=== PATIENT | female | born 2000 | race African-American/Black ===

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

== ENCOUNTER → 2019-07-31 | Emergency (ER) | payer MEDICAID ==
[~2019-07-31] MED LIST: predniSONE 20 MG TAB ONE
== END ==
LOC: BURERS 13:06
DX: J45.901 Unspecified asthma with (acute) exacerbation (principal); Z79.51 Long term (current) use of inhaled steroids
CPT/HCPCS: 94640; J7512; J7620

== ENCOUNTER 2019-08-16 12:34 | Emergency (ER) | payer MEDICAID | END 2019-08-16 13:06 | disposition home or self-care (01) | LOC: BURERS 12:34 | DX: R68.84 Jaw pain (principal); J45.909 Unspecified asthma, uncomplicated | CPT/HCPCS: 99282 ==

== ENCOUNTER 2019-11-19 08:10 | Emergency (ER) | payer MEDICAID ==
[2019-11-19] MEDS ORDERED: Clindamycin 150 MG CAP ONE (08:37)
[2019-11-19] MEDS ORDERED: HYDROcodone/Acetaminophen 10/325 mg Tablet ONE (08:37)
== END 2019-11-19 09:00 | disposition home or self-care (01) ==
LOC: BURERS 08:10
DX: K02.9 Dental caries, unspecified (principal); J45.909 Unspecified asthma, uncomplicated
CPT/HCPCS: 99283

== ENCOUNTER 2020-07-24 17:45 | Emergency (ER) | payer MEDICAID, OTHER | END 2020-07-24 20:00 | disposition home or self-care (01) | LOC: BURERS 17:45 | DX: M25.562 Pain in left knee (principal); J45.909 Unspecified asthma, uncomplicated; X50.1XXA Overexertion from prolonged static or awkward postures, initial encounter | CPT/HCPCS: 99281 ==